=== PATIENT | female | born 1965 | race African-American/Black ===

== ENCOUNTER 2020-10-06 13:45 | Outpatient (RCR) | payer MEDICARE, SELFPAY ==
[2020-10-06] MEDS: COVID-19 VACC, MRNA(PFIZER)/PF 30 MCG/0.3 ML SYRINGE IM (13:24)
[2020-10-27] MEDS: COVID-19 VACC, MRNA(PFIZER)/PF 30 MCG/0.3 ML SYRINGE IM (13:08)
== END 2020-10-06 23:59 ==
LOC: IMMUN 13:45
PROVIDERS: PCP Family Medicine; Visit Provider Family Medicine
DX: Z23 Encounter for immunization (principal)
CPT/HCPCS: 0001A; 0002A; 91300

== ENCOUNTER 2022-06-24 07:50 | Outpatient (CLI) | payer MEDICAID, SELFPAY ==
--- NOTE | 2022-06-24 07:51 | MRI_ITS ---
EXAM: MR HEAD WITHOUT AND WITH INTRAVENOUS CONTRAST CLINICAL INDICATION: Migraine headaches TECHNIQUE: Multiplanar and multisequence MR images of the brain were obtained without and with intravenous contrast. This report was created using [employer] report generation technology. CONTRAST: IV Clariscan 20ml COMPARISON: None. FINDINGS: BRAIN AND EXTRA-AXIAL SPACES: 14 x 10 mm extra-axial contrast enhancing mass noted along the left cerebellopontine angle is slightly anterior and superior to the left internal auditory canal likely representing meningioma. Acoustic neuroma not entirely excluded. No obvious enlargement of the internal auditory canal. Very minimal impression on the brainstem. No intra- or extra-axial hemorrhage. No evidence of acute infarct. There is preservation of the holden/white matter interface. Basal cisterns are patent. SELLA: Normal. Normal sella turcica, pituitary gland, infundibular stalk, optic chiasm and hypothalamus. AUDITORY SYSTEM: Normal. The internal auditory canals are patent. BONES/JOINTS: Intact calvarium. SINUSES: Unremarkable as visualized. Clear. MASTOID AIR CELLS: Unremarkable as visualized. Clear. ORBITS: Unremarkable as visualized. Both globes, extraocular muscles, optic nerves and retrobulbar fat appear unremarkable. VASCULATURE: Unremarkable as visualized. Normal flow voids in the major intracranial circulation. MRI/Brain W/WO Contrast IMPRESSION: 14 x 10 mm left cerebellopontine angle extra-axial mass likely representing meningioma. Acoustic neuroma not excluded. Electronically Signed: Rolando De Leon MD at 9:49 EST ,
[2022-06-24 09:29] LABS: Hematocrit 37.6 % (37-47); Mean Corp Hgb Conc 31.9 g/dL (32-36); Mean Corpuscular Hgb 28.2 pg (27.0-32.0); Mean Corpuscular Volume 88.5 fL (81-99); Mean Platelet Vol. 10.4 fl (6.2-12.0); Platelet Count 339 K/mm3 (150-450); RBC Distribution Width CV 13.9 % (11.6-14.6); RBC Distribution Width SD 44.6 fl (35.1-43.9); Red Blood Count 4.25 M/mm3 (4.2-5.4); White Blood Count 7.1 K/mm3 (4.4-11.0)
[2022-06-24 10:20] LABS: ALB/GLOB Ratio 0.9 RATIO (0.9-2.4); AST(SGOT) 20 U/L (15-37); Alanine Aminotransfer ALT/SGPT 38 U/L (13-56); Albumin, Serum 3.3 g/dL (3.2-5.0); Alkaline Phosphatase 112 U/L (45-117); Anion Gap 6 (5-15); BUN 11 mg/dL (7-18); BUN/Creat Ratio 13.1 RATIO (10-20); Calcium,Total 8.7 mg/dL (8.5-10.1); Chloride 104 mmol/L (98-107); Creatinine, Serum 0.84 mg/dL (0.55-1.02); EST Glomerular Filtration Rate 74 mL/min (>60); Est Glom Filt Rate - Afr Amer 89 mL/min (>60); Globulin 3.8 g/dL (2.2-4.2); Glucose 93 mg/dL (74-106); Magnesium 2.2 mg/dL (1.6-2.6); Potassium 3.6 mmol/L (3.5-5.1); Protein, Total 7.1 g/dL (6.4-8.2); Sodium Level 139 mmol/L (136-145); Thyroid Stim Hormone (TSH) 1.33 uIU/mL (0.358-3.74)
[2022-06-28 13:20] LABS: Vitamin D 1,25-Dihydroxy 49.7 pg/mL (24.8-81.5)
== END 2022-06-24 23:59 | disposition home or self-care (01) ==
PROVIDERS: PCP Family Medicine; Referring Provider Psychiatry & Neurology Neurology; Visit Provider Psychiatry & Neurology Neurology
DX: G43.109 Migraine with aura, not intractable, without status migrainosus (principal); E55.9 Vitamin D deficiency, unspecified; M79.7 Fibromyalgia; R53.83 Other fatigue
CPT/HCPCS: 36415; 70553; 80053; 82652; 83735; 84443; 85027; A9575

== ENCOUNTER → 2022-11-22 | Outpatient (CLI) | payer MEDICAID, SELFPAY ==
--- NOTE | 2022-11-22 17:05 | MRI_ITS ---
STUDY: MRI BRAIN WITH AND WITHOUT CONTRAST REASON FOR EXAM: Female, 56 years old. left cerebellopontine angle mass -- with attention to the IACs TECHNIQUE: Standardized multiplanar fat and water weighted pulse sequences were obtained. 20ml Clariscan via IV was administered for the contrast portion of the examination. COMPARISON: 06/24/2022 FINDINGS: Normal size of the ventricles and extra-axial spaces for the patient''s age. Normal white matter tracts of the supratentorial brain. There is no evidence for recent intracranial ischemia or other cause of cytotoxic edema on diffusion weighted imaging (DWI). Normal bilateral basal ganglia. Normal thalami. There is no extra-axial fluid accumulation. Normal flow voids within the major intracranial circulation suggesting patency by spin echo criteria. Normal venous enhancement. There is no change in the 10 mm oval T1 isointense, T2 hyperintense, solidly enhancing mass of the left cerebellopontine angle just inferior to the origin of the 8th cranial nerves likely consistent with a meningioma or less likely vestibular schwannoma (acoustic neuroma] the cyst. There is enlargement of the sella turcica with increased CSF within the sella and flattening of the pituitary gland consistent with an empty sellar syndrome. Normal infundibular stalk, hypothalamus, and optic chiasm. Normal tectal plate and pineal gland. Normal midbrain, ruthy and medulla. Normal cerebellum. Normal basal cisterns. Normal bilateral temporal bones. Normal bilateral internal auditory canals. No demonstrated orbital abnormality, within the constraints of a routine brain study. Normal visualized paranasal sinuses. Normal calvarium and skull base. Normal visualized soft tissue structures. Normal visualized upper cervical spine. MRI/Brain W/WO Contrast IMPRESSION: No change in suspected meningioma the left cerebellopontine angle. Electronically Signed: John Awan MD at 23:35 EDT ,
== END | disposition home or self-care (01) ==
LOC: MRI 17:02
PROVIDERS: PCP Family Medicine; Referring Provider Psychiatry & Neurology Neurology; Visit Provider Psychiatry & Neurology Neurology
DX: D33.3 Benign neoplasm of cranial nerves (principal)
CPT/HCPCS: 70553; A9575

== ENCOUNTER → 2023-06-25 | Outpatient (CLI) | payer MEDICAID, SELFPAY ==
[2023-06-25 10:11] LABS: Erythrocyte Sedimentation Rate 25 mm/hr (0-30)
[2023-06-25 10:13] LABS: Absolute Neutrophil Count 3.9 X10^3/uL (2.0-7.7); Basophil# 0.06 X10^3/uL; Eosinophils% 3.2 % (0-5); Hematocrit 34.8 % (37-47); Hemoglobin 10.4 g/dL (12.0-15.0); Mean Corp Hgb Conc 29.9 g/dL (32-36); Mean Corpuscular Hgb 25.4 pg (27.0-32.0); Mean Corpuscular Volume 84.9 fL (81-99); Mean Platelet Vol. 10.6 fl (6.2-12.0); Monocyte# 0.56 X10^3/uL; NRBC Flagged by Analyzer 0 % (0-5); Neutrophil % 62.3 % (47-70); Platelet Count 396 K/mm3 (150-450); RBC Distribution Width CV 15.8 % (11.6-14.6); RBC Distribution Width SD 48.6 fl (35.1-43.9); White Blood Count 6.3 K/mm3 (4.4-11.0)
[2023-06-25 10:33] LABS: Rheumatoid Factor < 10.0 IU/mL (<15)
[2023-06-30 18:07] LABS: Angiotensin Convert Enzyme 55 U/L (14-82); HLA B27 Negative (.)
== END | disposition home or self-care (01) ==
PROVIDERS: PCP Family Medicine; Referring Provider Ophthalmology; Visit Provider Ophthalmology
DX: H20.013 Primary iridocyclitis, bilateral (principal)
CPT/HCPCS: 36415; 81374; 82164; 85025; 85652; 86431

== ENCOUNTER → 2023-09-03 | Outpatient (CLI) | payer MEDICAID, SELFPAY ==
[2023-09-03 17:41] LABS: Absolute Lymphocyte Count 1.62 X10^3/uL (0.83-4.51); Absolute Neutrophil Count 3.6 X10^3/uL (2.0-7.7); Basophil# 0.03 X10^3/uL; Basophil% 0.5 % (0-1); Eosinophil# 0.21 X10^3/uL; Eosinophils% 3.6 % (0-5); Hematocrit 36.8 % (37-47); Hemoglobin 11.1 g/dL (12.0-15.0); Lymphocyte # 1.62 X10^3/ul (0.83-4.51); Lymphocyte % 27.7 % (19-41); Mean Corp Hgb Conc 30.2 g/dL (32-36); Mean Corpuscular Hgb 26.7 pg (27.0-32.0); Mean Corpuscular Volume 88.5 fL (81-99); Mean Platelet Vol. 10.9 fl (6.2-12.0); Monocyte% 6.8 % (0-10); NRBC Flagged by Analyzer 0 % (0-5); Neutrophil # 3.57 X10^3/uL (2.7-7.7); Neutrophil % 61.2 % (47-70); Platelet Count 369 K/mm3 (150-450); RBC Distribution Width CV 16.7 % (11.6-14.6); RBC Distribution Width SD 53.4 fl (35.1-43.9); Red Blood Count 4.16 M/mm3 (4.2-5.4); White Blood Count 5.8 K/mm3 (4.4-11.0)
[2023-09-03 17:44] LABS: AST(SGOT) 20 U/L (15-37); Alanine Aminotransfer ALT/SGPT 34 U/L (13-56); Albumin, Serum 3.6 g/dL (3.2-5.0); Alkaline Phosphatase 121 U/L (45-117); Anion Gap 5 (5-15); BUN 9 mg/dL (7-18); BUN/Creat Ratio 9.8 RATIO (10-20); Calcium,Total 9.4 mg/dL (8.5-10.1); Chloride 106 mmol/L (98-107); Creatinine, Serum 0.91 mg/dL (0.55-1.02); EST Glomerular Filtration Rate 67 mL/min (>60); Est Glom Filt Rate - Afr Amer 81 mL/min (>60); Globulin 3.7 g/dL (2.2-4.2); Glucose 100 mg/dL (74-106); Potassium 3.6 mmol/L (3.5-5.1); Protein, Total 7.3 g/dL (6.4-8.2); Sodium Level 138 mmol/L (136-145)
--- OUTSIDE RECORDS SUMMARY | 2023-09-03 18:44 | XMS RPT_ITS | CCD ---
Author Name Unknown Address [address] [place] [address] Organization [facility] Care Team Providers Care Tree Topper Name Role Phone Unavailable Primary Care Provider Unavailabl e Results Test Name Value Interpretation Reference Range Facil ity Encounters Encounter Date Encounter Type Care Provider Facility Start: 02-11-2005 End: 02-11-2005 Patient encounter procedure Luis M Roland Work Phone: [facility] Start: 02-11-2005 Results Only Luis M Roland Work Phone: [facility] Procedures Date Procedure Procedure Detail Performing Clinician Start: 02-11-2005 CONVERTED SURGICAL PATHOLOGY Luis M Roland Work Phone: Social History Date Type Detail Facility Tobacco smoking status NHIS Unknown if ev er smoked [facility] Sex Assigned At Not on file [facility] Additional Source Comments Source Comments (unrecognize d section and content) In the event this informatio n is protected by the Federal Confidentiality of Alcohol and Drug Abuse Patient Records regulations: The Federal rules restrict any use of the information to criminally investigate or prosecute any alcohol or drug abuse patient.[facility] FOR RECORDS PERTAINING TO PATIENTS WHO ARE OR HAVE BEEN ENROLLED IN A CHEMICAL DEPENDENCY/SUBSTANCEABUSE PROGRAM, SOME INFORMATION MAY BE OMITTED. This clinical summary was aggregated from multiple sources. Caution should be exercised in using it in the provision of clinical care. This summary normalizes information from multiple sources, and as a consequence, information in this document may materially change the coding, format and clinical context of patient data. In addition, data may be omitted in some cases. CLINICAL DECISIONS SHOULD BE BASED ON THE PRIMARY CLINICAL RECORDS. [facility] [employer] [facility]. provides no warranty or guarantee of the accuracy or completeness of information in this document.
== END | disposition home or self-care (01) ==
LOC: BFHLAB 15:12
PROVIDERS: PCP Nurse Practitioner Family; Visit Provider Nurse Practitioner Family
DX: N39.0 Urinary tract infection, site not specified (principal); D64.9 Anemia, unspecified; R80.9 Proteinuria, unspecified; R82.2 Biliuria; R82.4 Acetonuria
CPT/HCPCS: 36415; 80053; 85025; 87086; 87088

== ENCOUNTER 2023-11-07 15:30 | Outpatient (RCR) | payer MEDICAID, SELFPAY ==
--- NOTE | 2023-10-02 11:07 | HP.PTEVAL_ITS ---
Patient's Visit Information Visit Information Visit Information: SANDEE AJMES is a 57 year old F referred to Physical Therapy by Dr. Kevyn Murillo DPM with a diagnosis of B Achilles Tightness. Date of Evaluation: 10/01/23 Physical Therapist: Landon Alegre DPT Visit Plan Frequency: 2x /Week Duration: 6 Weeks Plan: 1) Start with Achilles tendon stretching, calf inhibition (foam rolling). 2) Post tib and foot intrinsic strengthening 3) may use manual techniques to aid in tissue elasticity Subjective Subjective: Pt. is here today for her initial evaluation with diagnosis of B Achilles tendon tightness. Pt. reports having increased B foot pain for a few years, but has become worse after starting new job where she stands most of the day. Pt. reports having pain at longitudinal arch and posterior to her met heads of bilateral feet. Pt. has been working on stretching at home, but not as effective as she would have hoped. Denies NT. Mother has similar issue, resulting in marked pes planus bilaterally. Pt. has been doing various calf stretches at home, from standing to towel stretching. She tries to get them done daily. 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 Pain noted in AMs (stiffness), worse after working all day. She uses good footwear and uses orthotics as well. Pt. is hopeful to reduce symptoms in order to get back to hiking and working without issues. Pain R plantar surface of foot: Pain Intensity (Out of 10): 2 Pain Intensity Range: 0 and 7 L plantar surface of foot: Pain Intensity (Out of 10): 2 Pain Intensity Range: 0 and 6 Objective Objective: POSTURE: Pt. has marked pes planus in stance, worse with SLS. PALPATION: Pt. tender along longitudinal arch and met heads throughout BLEs, worse at initial 3 met heads. NEURO: normal throughout, normal sensation and DTR. ROM: hip and knee ROM normal. Pt. does have tightness in B calves limiting ankle DF. R DF 11deg, L DF 10deg. PF slightly tight, but not limiting. MMT: Pt. has some weakness with her post tib and foot intrinsics as well 4/5 both, rest of B ankles were 5/5. GAIT: Pt. has fairly normal gait pattern with shoes on. With shoes off she has marked pes planus bilaterally with navicular drop noted. This results in a increase knee valgus positioning bilaterally. Balance/Special Test Scores Lower Extremity Functional Score: 53 Goals Goal 1:: LTG: Pt. to be I with HEP for achilles stretching, post tib and foot intrinsic strengthening. Goal Time Frame: 4-6 Weeks Goal 2:: STG: Pt. to complete all home ADLs and chores without increase in B foot pain. Goal Time Frame: 2 Weeks Goal 3:: LTG: pt. to complete all full day of work with 0-2/10 in B feet. Goal Time Frame: 4-6 Weeks Goal 4:: LTG: Pt. to have greater than 15deg of DF of B ankles allowing for improved ankle mobility and improve foot positioning with gait. Goal Time Frame: 4-6 Weeks Goal 5:: LTG: Pt. to have 5/5 foot intrinsic and post tib strength. Goal Time Frame: 4-6 Weeks Rehabilitation Potential Physical Therapy Diagnosis: Pt. has signs and symptoms consistent with B achilles tightness. This in conjunction with her marked pes planus puts a lot of stress on her fore and mid foot. She would benefit from Achilles lengthening exercises and post tib/foot intrinsic strengthening. Rehabilitation Potential: Good Anticipated Interventions Patient/Client Instruction: Educate patient on: Condition, Plan of Care, Risk Factors and Benefits of Fitness Program For the Purpose of:: To facilitate caregiver knowledge, To improve self management, To prevent re-injury, To improve ability to perform tasks related to life management and To improve tolerance to ADL's Therapeutic Exercise to Include: Strength training, Power training, Flexibilty training, Gait and locomotor training, Passive ROM and Active ROM For the Purpose of:: To decrease swelling/inflammation, To increase ROM, To improve nutrient delivery to tissue, To improve muscle performance and motor function, To improve health of tissue, To decrease soft tissue restriction and To increase flexibility/ROM Manual Therapy Techniques to Include: Mobilization, Passive ROM, Functional dry needling and Soft tissue mobilization For the Purpose of:: To decrease pain, To decrease swelling/inflammation, To increase ROM, To improve nutrient delivery to tissue, To increase oxygenation perfusion, To improve health of tissue, To decrease soft tissue restriction and To increase flexibility/ROM Text: Thank you for the opportunity to evaluate your patient. For Medicare and Medicare HMO plans, please review the plan of care and approve it. It will need to be FAXED BACK to us at [phone] for Medicare purposes. For Medicare only, by signing this I certify the plan of care. Please let me know if there are questions or concerns regarding this plan of care. Physician Signature: Dat e:
--- NOTE | 2023-11-25 15:57 | HP.PTDCSUM ---
Discharge Summary D/C summary: It has been my pleasure to treat SANDEE JAMES referred by Dr. Kevyn Murillo DPM, with the diagnosis of B Achilles Tightness for a total of 9 visit(s). Discharge Date: 11/07/23 Please see the following information for a summary of their discharge status. Subjective Subjective: Pretty sore today, worse than most days. Just got off of work. Pain R plantar surface of foot: Pain Intensity (Out of 10): 4 L plantar surface of foot: Pain Intensity (Out of 10): 4 Overall Improvement % Improvement: 25 Objective Objective/Function: Pain raised to 6/10 by EOS. Will continue progressing as able depending on Recheck with PT. Goals Goal 1:: LTG: Pt. to be I with HEP for achilles stretching, post tib and foot intrinsic strengthening. Goal Progress: Progressing Goal 2:: STG: Pt. to complete all home ADLs and chores without increase in B foot pain. Goal Progress: Progressing Goal 3:: LTG: pt. to complete all full day of work with 0-2/10 in B feet. Goal Progress: Progressing Goal 4:: LTG: Pt. to have greater than 15deg of DF of B ankles allowing for improved ankle mobility and improve foot positioning with gait. Goal Progress: Progressing Goal 5:: LTG: Pt. to have 5/5 foot intrinsic and post tib strength. Goal Progress: Progressing Plan Plan: 1) Start with Achilles tendon stretching, calf inhibition (foam rolling). 2) Post tib and foot intrinsic strengthening 3) May use manual techniques to aid in tissue elasticity D/C Information Discharge Comments: Pt. will be DC from PT at this point in time. Pt. had some progress, but is still having pain. I want her to continue with strengthening and stretching on her own at home. Pt. consents. d/c sentence: If there are questions or concerns regarding this patient's physical therapy, please feel free to call me at [phone]. Thank you for the referral of this patient. Sincerely, Landon Alegre, DPT Balance/Gait/Functional tests Balance/Special Test Scores Lower Extremity Functional Score: 53 Improvement % Improvement: 25
== END 2023-11-07 19:00 | disposition home or self-care (01) ==
LOC: PT 15:30
PROVIDERS: PCP Family Medicine; Referring Provider Podiatrist Foot & Ankle Surgery; Visit Provider Podiatrist Foot & Ankle Surgery
DX: M76.61 Achilles tendinitis, right leg (principal); M76.62 Achilles tendinitis, left leg
CPT/HCPCS: 97110; 97140; 97161; 97530

== ENCOUNTER → 2023-11-12 | Outpatient (CLI) | payer MEDICAID, SELFPAY ==
--- NOTE | 2023-11-12 12:45 | MRI_ITS ---
STUDY: MRI BRAIN WITH AND WITHOUT CONTRAST REASON FOR EXAM: Female, 57 years old. follow-up suspected meningioma TECHNIQUE: Standardized multiplanar fat and water weighted pulse sequences were obtained. IV 19ml clariscan was administered for the contrast portion of the examination. COMPARISON: 11/22/2022 FINDINGS: Normal size of the ventricles and extra-axial spaces for the patient''s age. Normal white matter tracts of the supratentorial brain. There is no evidence for recent intracranial ischemia or other cause of cytotoxic edema on diffusion weighted imaging (DWI). Normal T2* images of the brain without demonstrated susceptibility artifact. There is no demonstrated hemosiderin stain. Normal bilateral basal ganglia. Normal thalami. There is no extra-axial fluid accumulation. Normal flow voids within the major intracranial circulation suggesting patency by spin echo criteria. Normal venous enhancement. There is no change in a 10 mm oval T1 isointense, T2 hyperintense solidly enhancing mass of the left cerebellopontine angle just inferior to the origin of the 8th cranial nerve likely consistent with a meningioma or vestibular schwannoma (acoustic neuroma). Normal sella turcica, pituitary gland, infundibular stalk, optic chiasm and hypothalamus. Normal tectal plate and pineal gland. Normal midbrain, ruthy and medulla. Normal cerebellum. Normal basal cisterns. Normal bilateral temporal bones. Normal bilateral internal auditory canals. No demonstrated orbital abnormality, within the constraints of a routine brain study. Normal visualized paranasal sinuses. Normal calvarium and skull base. Normal visualized soft tissue structures. Normal visualized upper cervical spine. MRI/Brain W/WO Contrast IMPRESSION: No change in left cerebellopontine angle mass consistent with a meningioma or testicular schwannoma (acoustic neuroma). Electronically Signed: John Awan MD at 0:07 EDT ,
== END | disposition home or self-care (01) ==
LOC: MRI 12:38
PROVIDERS: PCP Family Medicine; Referring Provider Psychiatry & Neurology Neurology; Visit Provider Psychiatry & Neurology Neurology
DX: D33.3 Benign neoplasm of cranial nerves (principal)
CPT/HCPCS: 70553; A9575

== ENCOUNTER → 2024-05-27 | Outpatient (CLI) | payer MEDICAID, SELFPAY ==
[2024-05-27 18:30] LABS: Vitamin B12 329 pg/mL (211-911)
== END | disposition home or self-care (01) ==
LOC: MTLAB 15:56
PROVIDERS: PCP Family Medicine; Referring Provider Psychiatry & Neurology Neurology; Visit Provider Psychiatry & Neurology Neurology
DX: R53.83 Other fatigue (principal); M79.7 Fibromyalgia
CPT/HCPCS: 36415; 82607

== ENCOUNTER → 2024-08-20 | Outpatient (CLI) | payer MEDICAID, SELFPAY ==
[2024-08-20 12:19] LABS: Hematocrit 37.3 % (37-47); Hemoglobin 11.5 g/dL (12.0-15.0); Mean Corp Hgb Conc 30.8 g/dL (32-36); Mean Corpuscular Volume 84.4 fL (81-99); Mean Platelet Vol. 9.9 fl (6.2-12.0); Platelet Count 390 K/mm3 (150-450); RBC Distribution Width CV 16.1 % (11.6-14.6); RBC Distribution Width SD 49.7 fl (35.1-43.9); Red Blood Count 4.42 M/mm3 (4.2-5.4); White Blood Count 6.9 K/mm3 (4.4-11.0)
[2024-08-20 12:56] LABS: ALB/GLOB Ratio 0.8 RATIO (0.9-2.4); AST(SGOT) 17 U/L (15-37); Alanine Aminotransfer ALT/SGPT 29 U/L (13-56); Albumin, Serum 3.4 g/dL (3.2-5.0); Alkaline Phosphatase 120 U/L (45-117); Anion Gap 5 (5-15); BUN 9 mg/dL (7-18); BUN/Creat Ratio 10.4 RATIO (10-20); Calcium,Total 8.9 mg/dL (8.5-10.1); Chloride 107 mmol/L (98-107); Cholesterol 235 mg/dL (200); Creatinine, Serum 0.87 mg/dL (0.55-1.02); EST Glomerular Filtration Rate 71 mL/min (>60); Est Glom Filt Rate - Afr Amer 85 mL/min (>60); Ferritin 5 ng/mL (8-252); Globulin 4.2 g/dL (2.2-4.2); Glucose 100 mg/dL (74-106); High Density Lipoprotein 52 mg/dL; Iron 40 ug/dL (50-170); Iron Binding Capacity,Total 461 ug/dL (250-450); Protein, Total 7.6 g/dL (6.4-8.2); Sodium Level 139 mmol/L (136-145); Triglycerides 126 mg/dL; Very Low Density Lipoprotein 25 mg/dL (5-40)
[2024-08-20 13:23] LABS: Hemoglobin A1c 5.3 % (3.8-5.6)
[2024-08-21 10:47] LABS: Vitamin B12 387 pg/mL (211-911); Vitamin D,25 Hydroxy 28.7 ng/mL
== END | disposition home or self-care (01) ==
LOC: LAB 11:59
PROVIDERS: PCP Family Medicine; Referring Provider Physician Assistant; Visit Provider Physician Assistant
DX: Z79.899 Other long term (current) drug therapy (principal)
CPT/HCPCS: 36415; 80053; 80061; 82306; 82607; 82728; 82746; 83036; 83540; 83550; 85027

== ENCOUNTER → 2025-06-23 | Outpatient (CLI) | payer MEDICAID, SELFPAY ==
--- OUTSIDE RECORDS SUMMARY | 2025-06-23 20:11 | XMS RPT_ITS | CCD ---
Author Organization [facility] Care Team Providers Care Obstetrician And Gynaecologist Name Role Phone Unavailable Primary Care Provider Unavailabl e David Yeboah Referring Unavailable David Yeboah Primary Care Unavailable Loyd Michelle Attending Unavailable Loyd Michelle Attending Unavailable David Yeboah Primary Care Unavailable Loyd Michelle Referring Unavailable David Yeboah Primary Care Unavailable Divina Thurman Referring Unavailable Divina Thurman Attending Unavailable Loyd Michelle Attending Unavailable David Yeboah Primary Care Unavailable Loyd Michelle Referring Unavailable Allergies Allergy Classification Reported Allergen(s) Allergy Type Date of Onset Reaction(s) Facility (1 source) Sulfonamides (Antibiotic) Drug allergy (disorder) 02-17-2025 [facility] Repository (1 source) rimegepant Drug allergy (disorder) 02-17-2025 [facility] Repository Problems Active Problems Problem Classification Problem Date Documented Da te Episodic/Chronic Headache; including migraine (1 source) Migraine with aura, not intractable, without status migrainosus; Translations: [Migraine with aura, not intractable, without status migrainosus] Onset: 06-15-2024 Chronic Other and unspecified benign neoplasm (1 source) Benign neoplasm of cranial nerves; Translations: [Benign neoplasm of cranial nerves] Onset: 06-15-2024 Chronic Past or Other Problems Problem Classification Problem Date Documented Da te Episodic/Chronic Malaise and fatigue (1 source) Other fatigue; Translations: [Other fatigue] Onset: 06-21-2024 Episodic Other aftercare (1 source) Other long-term (current) drug therapy; Translations: [Other long-term (current) drug therapy] Onset: 09-08-2024 Episodic Other connective tissue disease (1 source) Fibromyalgia; Translations: [Fibromyalgia] Onset: 11-26-2024 Episodic Residual codes; unclassified (1 source) Insomnia, unspecified; Translations: [Insomnia, unspecified] Onset: 06-15-2024 Episodic Results Test Name Value Interpretation Reference Range Dwayne rowland Neurology Visit Reporton Neurology Visit Report [facility] [address] [facility], [address] [place] [address] OFFICE VISIT Date of Service: 02/17/25 MR#: [id number] Acct: [id number] Name: SANDEE JAMES Rep #: [id number] : 1965 Provider: Dr. Loyd gamez MD Age/Sex: 59/F Location: [facility] [place], [place]. Status: Signed HPI [facility] Chief Complaint: Details: Interim History: Sandee returns for follow-up visit. She has a history of endometriosis status post bilateral oophorectomy and hysterectomy, depression, vitamin D deficiency, obstructive sleep apnea on CPAP, irritable bowel syndrome, and fibromyalgia. She has been experiencing headaches since childhood. During childhood her headaches were mild. When she was a teenager, she began to experience severe headaches that would occur once per month prior to the onset of her menses. Around 2013, she began to have an increase in her headache frequency and severity and began to have associated symptoms. During the day prior to her headaches, she would experience a prodrome of feeling generally unwell and spacey. The headache would then begin the following day. Her headaches have been right-sided headaches that originate in the occipital head region and radiate anteriorly. Her headaches are throbbing and sharp in character. She has associated nausea, photophobia and phonophobia. Changes in barometric pressure are a trigger for her headaches. Her headaches typically would last 1 to 2 days, and during and following the period of headaches she experiences an exacerbation of her musculoskeletal pain with prominence of right-sided back pain and neck pain with associated muscle spasms in these regions. This exacerbation of muscle pain could last up to 3 days following her headache. She has had visual auras described as peripheral lines occurring occasionally with her headaches. She described having vague right leg weakness lasting about 1 day following her headaches. In August 2021, she began to have an increase in her headache frequency and then increased in frequency further in 2022 during which time she had 12 to 15 days of headache per month. Individual headaches would last 3 to 4 days each. Emgality was then initiated and her headaches decreased in frequency to 7-10 headaches per month. Emgality was not covered on her insurance plan and was then discontinued and Aimovig was initiated in 2022 and she has had a further reduction in her headache frequency and experienced 2 to 3 days of headache per month. Ubrelvy 100 mg has been of moderate benefit for her headaches. Verapamil ER lessened her headache severity but did not result in sustained reduction of her headache frequency. She states that Aimovig is no longer covered by her insurance and she discontinued this medication around October 2024. She now has headaches 1 to 2 days/month and individual headaches last up to 3 days each. At her baseline, she has diffuse muscle pain and tenderness affecting all her extremities and back due to her fibromyalgia. She also has fatigue. She denied having numbness. Her B12 level was near the low end of the normal range. A B12 1000 mcg IM injection was not of benefit for her fatigue. Naproxen has been of slight benefit for her headaches (she uses this infrequently). Duloxetine has been of benefit for her fibromyalgia and depression. She has been prescribed Rexulti for depression. Nortriptyline has been of benefit for her insomnia but not her fibromyalgia or headaches. Amitriptyline was less effective than nortriptyline. [id number] magnesium was not of benefit for headache prevention though she stated it does help her sleep at night. Riboflavin was not of benefit for headache prophylaxis. Rizatriptan and sumatriptan 100 mg were of only slight benefit for her headaches. Cyclobenzaprine was sedating but was of benefit for her musculoskeletal pain. Fioricet was of modest benefit for her headaches. Topiramate caused worsened depression. Nurtec ODT caused a rash. Her head MRIs reveals a left cerebellopontine angle extra-axial mass (10 x 14 mm in June 2022 and 9 x 14 mm in November 2022) that likely represents a meningioma and less likely an acoustic neuroma; a partially empty sella was also noted. She denied having hearing loss. Her vitamin D level was in the insufficiency range. She takes vitamin D 50 mcg daily. Physical Exam: Neuro: The patient is awake and alert and responds appropriately; gait is unremarkable; no dysmetria is noted in the upper extremities Heart: Regular rate and rhythm Supplemental Info BMP, vitamin D, TSH, free T4, free T3 (10/22/2016): Vitamin D 11.1 (deficiency) BMP, lipid profile (11/28/2016): Cholesterol 221 (high), LDL 153 (high), VLDL 23 (normal), HDL 45 (normal), triglycerides 117 (normal) Lumbar spine x-rays (05/06/2015): FINDINGS: Normal lumbar lordosis.??? There is no substantial scoliosis.??? There is a normal (more content not included)... Normal [facility] Vitamin B12on 08-21-2024 Cobalamin (Vitamin B12) [Mass/Vol] 387 pg/mL Normal 211-911 [facility] Comment on above: Performed By: #### L 100.0500, L503.6150, L503.0105, L506.1000, L501.9985, L506.0250, L500.4100, L503.6075, L503.6550, L500.4050 ####[facility] [id number] [place], [place], [id number] Vitamin D,25 Hydroxyon 08-21 Vitamin D 25-OH 28.7 ng/mL Normal [facility] Comment on above: Result Comment: Latonia min D 25(OH) Status Range Deficiency <20 ng/mL (50nmol/L) Insufficiency 20 - 30 ng/mL (50 - 75 nmol/L) Sufficiency 30 - 100 ng/mL (75 - 250 nmol/L) Toxicity >100 ng/mL (>250 nmol/L) Performed By: #### L 100.0500, L503.6150, L503.0105, L506.1000, L501.9985, L506.0250, L500.4100, L503.6075, L503.6550, L500.4050 ####[facility] [id number] [place], [place], [id number] CBC-Complete Blood Cnt No Di ffon 08-20-2024 Erythrocyte distribution width (RBC) [Ratio] 16.1 % High 11.6-14.6 [facility] Comment on above: Performed By: #### L 100.0500, L503.6150, L503.0105, L506.1000, L501.9985, L506.0250, L500.4100, L503.6075, L503.6550, L500.4050 #### [facility] [address] [place], [address] Hematocrit (Bld) [Volume fraction] 37.3 % Normal 37-47 [facility] Comment on above: Performed By: #### L 100.0500, L503.6150, L503.0105, L506.1000, L501.9985, L506.0250, L500.4100, L503.6075, L503.6550, L500.4050 #### [facility] [address] [place], [address] Hemoglobin (Bld) [Mass/Vol] 11.5 g/dL Low 12.0-15.0 [facility] Comment on above: Performed By: #### L 100.0500, L503.6150, L503.0105, L506.1000, L501.9985, L506.0250, L500.4100, L503.6075, L503.6550, L500.4050 #### [facility] [address] [place], [address] MCH (RBC) [Entitic mass] 26.0 pg Low 27.0-32.0 [facility] Comment on above: Performed By: #### L 100.0500, L503.6150, L503.0105, L506.1000, L501.9985, L506.0250, L500.4100, L503.6075, L503.6550, L500.4050 #### [facility] [address] [place], [address] MCHC (RBC) [Mass/Vol] 30.8 g/dL Low 32-36 [facility] Comment on above: Performed By: #### L 100.0500, L503.6150, L503.0105, L506.1000, L501.9985, L506.0250, L500.4100, L503.6075, L503.6550, L500.4050 #### [facility] [address] [place], [address] MCV (RBC) [Entitic vol] 84.4 fL Normal 81-99 [facility] Comment on above: Performed By: #### L 100.0500, L503.6150, L503.0105, L506.1000, L501.9985, L506.0250, L500.4100, L503.6075, L503.6550, L500.4050 #### [facility] [address] [place], [address] Platelet mean volume (Bld) [Entitic vol] 9.9 fL Normal 6.2-12.0 [facility] Comment on above: Performed By: #### L 100.0500, L503.6150, L503.0105, L506.1000, L501.9985, L506.0250, L500.4100, L503.6075, L503.6550, L500.4050 #### [facility] [address] [place], [address] Platelets (Bld) [#/Vol] 390 10*3/uL Normal 150-450 [facility] Comment on above: Performed By: #### L 100.0500, L503.6150, L503.0105, L506.1000, L501.9985, L506.0250, L500.4100, L503.6075, L503.6550, L500.4050 #### [facility] [address] [place], [address] RBC (Bld) [#/Vol] 4.42 10*6/uL Normal 4.2-5.4 [facility] Comment on above: Performed By: #### L 100.0500, L503.6150, L503.0105, L506.1000, L501.9985, L506.0250, L500.4100, L503.6075, L503.6550, L500.4050 #### [facility] [address] [place], [address] RDW SD 49.7 fl High 35.1-43.9 [facility] Comment on above: Performed By: #### L 100.0500, L503.6150, L503.0105, L506.1000, L501.9985, L506.0250, L500.4100, L503.6075, L503.6550, L500.4050 #### [facility] [address] [facility] [place], [place], [id number] (943) WBC (Bld) [#/Vol] 6.9 10*3/uL Normal 4.4-11.0 [facility] Comment on above: Performed By: #### L 100.0500, L503.6150, L503.0105, L506.1000, L501.9985, L506.0250, L500.4100, L503.6075, L503.6550, L500.4050 #### [facility] [address] [place], [address] Comprehensive Metabolic Prof [facility] 08-20-2024 Albumin [Mass/Vol] 3.4 g/dL Normal 3.2-5.0 [facility] Comment on above: Performed By: #### L 100.0500, L503.6150, L503.0105, L506.1000, L501.9985, L506.0250, L500.4100, L503.6075, L503.6550, L500.4050 #### [facility] [address] [place], [place], [phone] (924) Albumin/Globulin [Mass ratio] 0.8 {ratio} Low 0.9-2.4 [facility] Comment on above: Performed By: #### L 100.0500, L503.6150, L503.0105, L506.1000, L501.9985, L506.0250, L500.4100, L503.6075, L503.6550, L500.4050 #### [facility] [address] [place], [place], [phone] (293) ALK P 120 U/L High 45-117 [facility] Comment on above: Performed By: #### L 100.0500, L503.6150, L503.0105, L506.1000, L501.9985, L506.0250, L500.4100, L503.6075, L503.6550, L500.4050 #### [facility] [address] [place], [place], [phone] (714) ALT [Catalytic activity/Vol] 29 U/L Normal 13-56 [facility] Comment on above: Performed By: #### L 100.0500, L503.6150, L503.0105, L506.1000, L501.9985, L506.0250, L500.4100, L503.6075, L503.6550, L500.4050 #### [facility] [address] [place], [place], [phone] (734) AST [Catalytic activity/Vol] 17 U/L Normal 15-37 [facility] Comment on above: Performed By: #### L 100.0500, L503.6150, L503.0105, L506.1000, L501.9985, L506.0250, L500.4100, L503.6075, L503.6550, L500.4050 #### [facility] [address] [place], [address] Bilirubin [Mass/Vol] 0.40 mg/dL Normal 0.20-1.00 [facility] Comment on above: Result Comment: For patients on eltrombopag therapy, use of Dimension Caret TBIL is not recommended. Performed By: #### L 100.0500, L503.6150, L503.0105, L506.1000, L501.9985, L506.0250, L500.4100, L503.6075, L503.6550, L500.4050 #### [facility] [address] [place], [address] BUN/CRE 10.4 RATIO Normal 10-20 [facility] Comment on above: Performed By: #### L 100.0500, L503.6150, L503.0105, L506.1000, L501.9985, L506.0250, L500.4100, L503.6075, L503.6550, L500.4050 #### [facility] [address] [place], [address] CA,Total 8.9 mg/dL Normal 8.5-10.1 [facility] Comment on above: Performed By: #### L 100.0500, L503.6150, L503.0105, L506.1000, L501.9985, L506.0250, L500.4100, L503.6075, L503.6550, L500.4050 #### [facility] [address] [place], [address] Chloride [Moles/Vol] 107 mmol/L Normal 98-107 [facility] Comment on above: Performed By: #### L 100.0500, L503.6150, L503.0105, L506.1000, L501.9985, L506.0250, L500.4100, L503.6075, L503.6550, L500.4050 #### [facility] [address] [place], [address] CO2 [Moles/Vol] 27.0 mmol/L Normal 21.0-32.0 [facility] Comment on above: Performed By: #### L 100.0500, L503.6150, L503.0105, L506.1000, L501.9985, L506.0250, L500.4100, L503.6075, L503.6550, L500.4050 #### [facility] [address] [place], [place], [phone] (810) Creatinine [Mass/Vol] 0.87 mg/dL Normal 0.55-1.02 [facility] Comment on above: Result Comment: The validity of the calculated GFR GFRAA in patients over 70 years has not been determined. Clinical correlation is essential. Performed By: #### L 100.0500, L503.6150, L503.0105, L506.1000, L501.9985, L506.0250, L500.4100, L503.6075, L503.6550, L500.4050 #### [facility] [address] [place], [address] (020) EST GFR - AA 85 mL/min Normal >60 [facility] Comment on above: Result Comment: Afri can Guinean GFR Calc Performed By: #### L 100.0500, L503.6150, L503.0105, L506.1000, L501.9985, L506.0250, L500.4100, L503.6075, L503.6550, L500.4050 #### [facility] [address] [place], [address] (813) GAP 5 Normal 5-15 [facility] Comment on above: Performed By: #### L 100.0500, L503.6150, L503.0105, L506.1000, L501.9985, L506.0250, L500.4100, L503.6075, L503.6550, L500.4050 #### [facility] [address] [place], [place], [phone] (086) GFR/1.73 sq M.predicted among non-blacks MDRD (S/P/Bld) [Vol rate/Area] 71 mL/min/{1.73_m2} Normal >60 [facility] Comment on above: Result Comment: Non- GFR Calc Performed By: #### L 100.0500, L503.6150, L503.0105, L506.1000, L501.9985, L506.0250, L500.4100, L503.6075, L503.6550, L500.4050 #### [facility] [address] [place], [address] Globulin (S) [Mass/Vol] 4.2 g/dL Normal 2.2-4.2 [facility] Comment on above: Performed By: #### L 100.0500, L503.6150, L503.0105, L506.1000, L501.9985, L506.0250, L500.4100, L503.6075, L503.6550, L500.4050 #### [facility] [address] [place], [address] Glucose [Mass/Vol] 100 mg/dL Normal 74-106 [facility] Comment on above: Result Comment: Fast ing Glucose result from 100 to 125 mg/dL suggests IMPAIRED HOMEOSTASIS per A.D.A. criteria. Performed By: #### L 100.0500, L503.6150, L503.0105, L506.1000, L501.9985, L506.0250, L500.4100, L503.6075, L503.6550, L500.4050 #### [facility] [address] [place], [address] Potassium [Moles/Vol] 4.0 mmol/L Normal 3.5-5.1 [facility] Comment on above: Performed By: #### L 100.0500, L503.6150, L503.0105, L506.1000, L501.9985, L506.0250, L500.4100, L503.6075, L503.6550, L500.4050 #### [facility] [address] [place], [address] Sodium [Moles/Vol] 139 mmol/L Normal 136-145 [facility] Comment on above: Performed By: #### L 100.0500, L503.6150, L503.0105, L506.1000, L501.9985, L506.0250, L500.4100, L503.6075, L503.6550, L500.4050 #### [facility] [address] [place], [place], [phone] (488) T PROT 7.6 g/dL Normal 6.4-8.2 [facility] Comment on above: Performed By: #### L 100.0500, L503.6150, L503.0105, L506.1000, L501.9985, L506.0250, L500.4100, L503.6075, L503.6550, L500.4050 #### [facility] [address] [place], [place], [phone] Urea nitrogen [Mass/Vol] 9 mg/dL Normal 7-18 [facility] Comment on above: Performed By: #### L 100.0500, L503.6150, L503.0105, L506.1000, L501.9985, L506.0250, L500.4100, L503.6075, L503.6550, L500.4050 #### [facility] [address] [place], [place], [phone] (255) Ferritinon 08-20-2024 Ferritin [Mass/Vol] 5 ng/mL Low 8-252 [facility] Comment on above: Performed By: #### L 100.0500, L503.6150, L503.0105, L506.1000, L501.9985, L506.0250, L500.4100, L503.6075, L503.6550, L500.4050 #### [facility] [address] [place], [address] (408) Folates, (Folic Acid)on 07-23 FOLATES 5.10 ng/mL Normal 3.1-55.4 [facility] Comment on above: Order Comment: N Performed By: #### L 100.0500, L503.6150, L503.0105, L506.1000, L501.9985, L506.0250, L500.4100, L503.6075, L503.6550, L500.4050 #### [facility] [address] [place], [place], [phone] (756) Hemoglobin A1con 08-20-2024 HbA1c (Bld) [Mass fraction] 5.3 % Normal 3.8-5.6 [facility] Comment on above: Result Comment: Norm al < 5.7 % Prediabetic 5.7 - 6.4 % Diabetic >or= 6.5 % Please note range changes. Performed By: #### L 100.0500, L503.6150, L503.0105, L506.1000, L501.9985, L506.0250, L500.4100, L503.6075, L503.6550, L500.4050 ####[facility] [address] [place], [place], [phone] Ironon 08-20-2024 Iron [Mass/Vol] 40 ug/dL Low 50-170 [facility] Comment on above: Performed By: #### L 100.0500, L503.6150, L503.0105, L506.1000, L501.9985, L506.0250, L500.4100, L503.6075, L503.6550, L500.4050 #### [facility] [address] [place], [address] Iron Binding Capacity,Totalo n 08-20-2024 TIBC 461 ug/dL High 250-450 [facility] Comment on above: Performed By: #### L 100.0500, L503.6150, L503.0105, L506.1000, L501.9985, L506.0250, L500.4100, L503.6075, L503.6550, L500.4050 #### [facility] [address] [place], [address] Lipid Profileon 08-20-2024 Cholesterol [Mass/Vol] 235 mg/dL High 200 [facility] Comment on above: Result Comment: <200 mg/dL Desirable 200-240 mg/dL Borderline >240 mg/dL High Risk Performed By: #### L 100.0500, L503.6150, L503.0105, L506.1000, L501.9985, L506.0250, L500.4100, L503.6075, L503.6550, L500.4050 #### [facility] [address] [place], [address] Cholesterol in HDL [Mass/Vol] 52 mg/dL Normal [facility] Comment on above: Result Comment: The drugs N-Acetylcysteine and Metamizole may falsely depress this assay. Reference Range HDL <40 mg/dL Low HDL Cholesterol HDL >or= 60 mg/dL High HDL Cholesterol Performed By: #### L 100.0500, L503.6150, L503.0105, L506.1000, L501.9985, L506.0250, L500.4100, L503.6075, L503.6550, L500.4050 #### [facility] [address] [place], [address] Cholesterol in LDL [Mass/Vol] 158 mg/dL High 0-130 [facility] Comment on above: Performed By: #### L 100.0500, L503.6150, L503.0105, L506.1000, L501.9985, L506.0250, L500.4100, L503.6075, L503.6550, L500.4050 #### [facility] [address] [place], [address] Cholesterol in VLDL [Mass/Vol] 25 mg/dL Normal 5-40 [facility] Comment on above: Performed By: #### L 100.0500, L503.6150, L503.0105, L506.1000, L501.9985, L506.0250, L500.4100, L503.6075, L503.6550, L500.4050 #### [facility] [address] [place], [place], [id number] Triglyceride [Mass/Vol] 126 mg/dL Normal [facility] Comment on above: Result Comment: The drugs N-Acetylcysteine and Metamizole may falsely depress this assay. Serum Triglycerides Reference Interval Normal <150 mg/dL Borderline high 150 - 199 mg/dL High 200 - 499 mg/dL Very High > or = 500 mg/dL Performed By: #### L 100.0500, L503.6150, L503.0105, L506.1000, L501.9985, L506.0250, L500.4100, L503.6075, L503.6550, L500.4050 #### [facility] [address] [place], [place], [phone] Neurology Visit Reporton Neurology Visit Report [facility] [address] [place] [address], [address] [place] [id number] OFFICE VISIT Date of Service: 05/27/24 MR#: [id number] Acct: [id number] Name: SANDEE JAMES Rep #: [id number] : 1965 Provider: Dr. Loyd gamez MD Age/Sex: 58/F Location: [facility] Status: Signed HPI [facility] Chief Complaint: Details: Interim History: Sandee returns for follow-up visit. She has a history of endometriosis status post bilateral oophorectomy and hysterectomy, depression, vitamin D deficiency, obstructive sleep apnea on CPAP, irritable bowel syndrome and fibromyalgia. She has been experiencing headaches since childhood. During childhood her headaches were mild. When she was a teenager, she began to experience severe headaches that would occur once per month prior to the onset of her menses. She was then placed on hormonal medication for treatment of endometriosis and her headaches diminished in frequency and severity for a number of years. She underwent a hysterectomy and bilateral oophorectomy for her endometriosis in 1999. Hormonal therapy was discontinued. Around 2013, she began to have an increase in her headache frequency and severity and began to have associated symptoms. During the day prior to her headaches, she would experience a prodrome of feeling generally unwell and spacey. The headache would then begin the following day. Her headaches have been right-sided headaches that originate in the occipital head region and radiate anteriorly. Her headaches are throbbing and sharp in character. She has associated nausea, photophobia and phonophobia. Changes in barometric pressure are a trigger for her headaches. Her headaches typically would last 1 to 2 days, and during and following the period of headaches she experiences an exacerbation of her musculoskeletal pain with prominence of right-sided back pain and neck pain with associated muscle spasms in these regions. This exacerbation of muscle pain could last up to 3 days following her headache. She has had visual auras described as peripheral lines occurring occasionally with her headaches. She described having vague right leg weakness lasting about 1 day following her headaches. Around August 2021, she began to have an increase in her headache frequency and then increased in frequency further in 2022 during which time she had 12 to 15 days of headache per month. Individual headaches would last 3 to 4 days each. Emgality was then initiated and her headaches decreased in frequency to 7-10 headaches per month. Emgality was not covered on her insurance plan and was then discontinued and Aimovig was initiated in 2022 and she has had a further reduction in her headache frequency. She now has headaches 2-3 times per month with individual headaches lasting about 2 days each. Ubrelvy 100 mg has been of moderate benefit for her headaches. Verapamil ER lessened her headache severity but did not result in sustained reduction of her headache frequency. At her baseline, she has diffuse muscle pain and tenderness affecting all her extremities and back due to her fibromyalgia. She also has fatigue. She denied having numbness. Naproxen has been of only modest benefit for her headaches; she tries not to take NSAIDs frequently. Duloxetine has been of benefit for her fibromyalgia and depression. She takes Rexulti for her depression. Nortriptyline has been of benefit for her insomnia but not her fibromyalgia or headaches. Amitriptyline was less effective than nortriptyline. Zehg-nkw-remniuq magnesium was not of benefit for headache prevention though she stated it does help her sleep at night. Riboflavin was not of benefit for headache prophylaxis. Rizatriptan and sumatriptan 100 mg were of only slight benefit for her headaches. Cyclobenzaprine was sedating but is of benefit for her musculoskeletal pain. Fioricet was of modest benefit for her headaches. Topiramate caused worsened depression. Nurtec ODT caused a rash. Her head MRIs reveals a left cerebellopontine angle extra-axial mass (10 x 14 mm in June 2022 and 9 x 14 mm in November 2022) that likely represents a meningioma and less likely an acoustic neuroma; a partially empty sella was also noted. She denied having hearing loss. Physical Exam: Neuro: The patient is awake and alert and responds appropriately Heart: Regular rate and rhythm Supplemental Info BMP, vitamin D, TSH, free T4, free T3 (10/22/2016): Vitamin D 11.1 (deficiency) BMP, lipid profile (11/28/2016): Cholesterol 221 (high), LDL 153 (high), VLDL 23 (normal), HDL 45 (normal), triglycerides 117 (normal) Lumbar spine x-rays (05/06/2015): FINDINGS: Normal lumbar lordosis.??? There is no substantial scoliosis.??? There is a normal alignment of the vertebrae. Normal vertebral bodies and endplates.??? There is narrowing of the L5-S1 disc space with vacuum phenomenon at this level note (more content not included)... Normal [facility] Vitamin B12on 05-27-2024 Cobalamin (Vitamin B12) [Mass/Vol] 329 pg/mL Normal 211-911 [facility] Comment on above: Performed By: #### L [phone] #### [facility] [address] [place], [place], [address] Otheron 02-14-2005 CONVERTED ELECTRONIC SIGNATURE ABEBY NICOLE M.D., PATHOLOGIST (Electronic signature on file) Final Signed Out: 02/14/2005 15:06 [facility] CONVERTED FINAL DIAGNOSIS A) RIGHT BREAST, REDUCTION MAMMOPLASTY - BENIGN BREAST TISSUE AND UNREMARKABLE SKIN. B) LEFT BREAST, REDUCTION MAMMOPLASTY - BENIGN BREAST TISSUE AND UNREMARKABLE SKIN. [facility] CONVERTED ORDERING PROVIDER Ordering Provider: LUIS M ROLAND [facility] Encounters Encounter Date Encounter Type Care Provider Facility Start: 02-17-2025 End: 02-17-2025 ambulatory [facility] Facility:[facility] [place], [place] Start: 08-20-2024 End: 08-20-2024 ambulatory [facility] Facility:[facility] Start: 05-27-2024 End: 05-27-2024 ambulatory [facility] Facility:[facility] [place] [place] Start: 05-27-2024 End: 05-27-2024 ambulatory [facility] Facility:[facility] Start: 02-11-2005 End: 02-11-2005 Patient encounter procedure Luis M Roland Work Phone: [facility] Start: 02-11-2005 Results Only Luis M Roland Work Phone: [facility] Procedures Date Procedure Procedure Detail Performing Clinician Start: 02-11-2005 CONVERTED SURGICAL PATHOLOGY Luis M Roland Work Phone: Payers Date Payer Category Payer Self-pay 2023 Unknown [id number] Unknown [id number] Unknown [id number] Unknown [id number] [id number] Unknown [id number] [id number] Social History Date Type Detail Facility Tobacco smoking status NHIS Unknown if ev er smoked [facility] Sex Assigned At Not on file [facility] Summary Purpose Family History No Family History Records Found Advance Directives No Advanced Directives Records Found Additional Source Comments Source Comments (unrecognize d section and content) In the event this informatio n is protected by the Federal Confidentiality of Alcohol and Drug Abuse Patient Records regulations: The Federal rules restrict any use of the information to criminally investigate or prosecute any alcohol or drug abuse patient.[facility] INFORMATION SOURCE (unrecogn ized section and content) DATE CREATED AUTHOR 02/20/2025 [facility] FOR RECORDS PERTAINING TO PATIENTS WHO ARE [...] BE BASED ON THE PRIMARY CLINICAL RECORDS. [facility]. provides no warranty or guarantee of the accuracy or completeness of information in this document.
== END | disposition home or self-care (01) ==
LOC: SL 20:07
PROVIDERS: PCP Family Medicine; Referring Provider Family Medicine; Visit Provider Family Medicine
DX: G47.10 Hypersomnia, unspecified (principal)
CPT/HCPCS: 95811